=== PATIENT | male | born 1960 | race Caucasian/White ===

== ENCOUNTER 2019-04-29 06:50 | Day surgery (SDC) | payer BC ==
[~2019-04-29] VITALS: Ht 180.3 cm; Wt 84.2 kg
[~2019-04-29 06:50] MED LIST: Omeprazole20 M1 PO; TOLT4 PO
[2019-04-29] MEDS ORDERED: Aspir 8181 MG PO (07:21)
--- NOTE | 2019-04-29 09:16 | NUR ---
04/29/19 0915 Tiffanie Larios PAMPHLETS ON DIVERTICULOSIS AND HIGH FIBER PROVIDED TO PT
== END 2019-04-29 09:15 | disposition home or self-care (01) ==
LOC: ORSCSDS 06:50
PROVIDERS: Student in an Organized Health Care Education/Training Program
PROC: 0DBL8ZX Excision of Transverse Colon, Via Natural or Artificial Opening Endoscopic, Diagnostic (ICD-10-PCS; principal; 2019-04-29 08:00)
DX: K63.5 Polyp of colon (principal); K64.8 Other hemorrhoids; K64.4 Residual hemorrhoidal skin tags; K57.30 Diverticulosis of large intestine without perforation or abscess without bleeding; Z86.010 Personal history of colon polyps
CPT/HCPCS: 88305; J0330; J0461; J2405; J2704; J7120

== ENCOUNTER 2020-03-06 06:04 | Day surgery (SDC) | payer BC ==
[~2020-03-06] VITALS: Ht 179 cm; Wt 86.1 kg
[~2020-03-06 06:04] MED LIST changes: +ATOR20 PO; +Amlodipine-Ben1 EACH PO; +Aspir 8181 MG PO
--- NOTE | 2020-03-06 11:10 | NUR ---
Ambulatory in Day Surgery History, Chart, Medications and Allergies reviewed before start of procedure.Patient confirms NPO status and agrees with scheduled surgery. Patient reports completing Chlorhexadine shower X2 prior to admission to hospital.Surgical site prepped with 2% Chlorhexidine cloth wipe. PATIENT RING PLACED INTO CHART SECURE IN ZIPLOCK LABELED WITH NAME
--- NOTE | 2020-03-06 11:28 | NUR ---
CALL TO FOR UPDATE. PT [id number], DENIES PAIN/NAUSEA/COLD. [facility]CRACKEN CATH IN PLACE WITH DRAINAGE BAG, RED COLORED URINE IN BAG. NPO AT THIS TIME PER DR VENTURA. AWAITING PLAN AND/OR D/C ORDERS.
--- NOTE | 2020-03-06 13:27 | NUR ---
PT AND EDUCATED ON CATH CARE, D.C OF CATHETER, LEG BAG PLACEMENT AND CHANGE, ZAINA CARE, FOLLOW UP CARE AND D/C INSTRUCTIONS FOR HERNIA REPAIR. PT AND DENY QUESTIONS. Patient up to Ambulate independently. Gait steady. Discharged via wheelchair to private car for ride home.
== END 2020-03-06 22:43 | disposition home or self-care (01) ==
LOC: ORSCMMR 06:04 → ORD 07:30 → ORSCMMR 07:30
PROVIDERS: Surgery
PROC: 0YU54JZ Supplement Right Inguinal Region with Synthetic Substitute, Percutaneous Endoscopic Approach (ICD-10-PCS; principal; 2020-03-06 07:30)
PROC: 8E0W4CZ Robotic Assisted Procedure of Trunk Region, Percutaneous Endoscopic Approach (ICD-10-PCS; principal; 2020-03-06 07:30)
DX: K40.91 Unilateral inguinal hernia, without obstruction or gangrene, recurrent (principal); I10 Essential (primary) hypertension; J45.909 Unspecified asthma, uncomplicated; Z79.899 Other long term (current) drug therapy; Z79.82 Long term (current) use of aspirin
CPT/HCPCS: 49651; S2900; A9270-GY; C1781; J0690; J1100; J1885; J2250; J2405; J2704; J2710; J3010; J7120